=== PATIENT | female | born 1975 | race Two or more races ===

== ENCOUNTER 2017-07-30 10:05 | Emergency (ER) | payer OTHER ==
[~2017-07-30] VITALS: Ht 157.5 cm; Wt 74.8 kg
[2017-07-30] MEDS ORDERED: NORFLEX100MG PO (13:46)
[2017-07-30] MEDS ORDERED: ZITHROMAX TRI-500 MG PO (13:46)
== END 2017-07-30 13:45 | disposition home or self-care (01) ==
LOC: ER 10:05
DX: B34.9 Viral infection, unspecified (principal)

== ENCOUNTER 2017-09-08 11:06 | Emergency (ER) | payer OTHER ==
[~2017-09-08] VITALS: Ht 162.6 cm; Wt 54.4 kg
[~2017-09-08 11:06] MED LIST: NORFLEX100MG PO; ZITHROMAX TRI-500 MG PO
== END 2017-09-08 14:13 | disposition home or self-care (01) ==
LOC: ER 11:06
DX: K04.7 Periapical abscess without sinus (principal)

== ENCOUNTER 2017-09-30 12:50 | Emergency (ER) | payer OTHER ==
[~2017-09-30] VITALS: Ht 162.6 cm; Wt 63.5 kg
== END 2017-09-30 18:27 | disposition home or self-care (01) ==
LOC: ER 12:50
DX: S00.83XA Contusion of other part of head, initial encounter (principal); W18.39XA Other fall on same level, initial encounter; Y93.89 Activity, other specified; Y92.89 Other specified places as the place of occurrence of the external cause; Y99.8 Other external cause status

== ENCOUNTER 2017-10-26 20:09 | Emergency (ER) | payer OTHER ==
[~2017-10-26] VITALS: Ht 152.4 cm; Wt 50.8 kg
== END 2017-10-26 23:56 | disposition home or self-care (01) ==
LOC: ER 20:09
DX: M54.5 Low back pain (principal)

== ENCOUNTER 2019-12-21 20:02 | Emergency (ER) | payer OTHER ==
[~2019-12-21] VITALS: Ht 160 cm; Wt 59.0 kg
[2019-12-21] MEDS ORDERED: AMOX-CLAV 500-1 EACH PO (20:51)
== END 2019-12-21 21:02 | disposition home or self-care (01) ==
LOC: ER 20:02
DX: L03.011 Cellulitis of right finger (principal); B95.61 Methicillin susceptible Staphylococcus aureus infection as the cause of diseases classified elsewhere; B96.89 Other specified bacterial agents as the cause of diseases classified elsewhere

== ENCOUNTER 2020-08-17 10:58 | Emergency (ER) | payer OTHER ==
[~2020-08-17] VITALS: Ht 157.5 cm; Wt 54.4 kg
[~2020-08-17 10:58] MED LIST changes: +AMOX-CLAV 500-1 EACH PO
== END 2020-08-17 17:22 | disposition home or self-care (01) ==
LOC: ER 10:58
DX: R31.0 Gross hematuria (principal); N39.0 Urinary tract infection, site not specified; Z59.0 Homelessness

== ENCOUNTER 2021-09-20 09:01 | Emergency (ER) | payer OTHER ==
[~2021-09-20] VITALS: Ht 152.4 cm; Wt 49.0 kg
== END 2021-09-20 11:20 | disposition left against medical advice (07) ==
LOC: ER 09:01
DX: K08.89 Other specified disorders of teeth and supporting structures (principal); Z88.2 Allergy status to sulfonamides